=== PATIENT | female | born 2000 | race Caucasian/White ===

== ENCOUNTER 2021-12-10 09:55 | Emergency (ER) | payer OTHER ==
[2021-12-10 11:08] LABS: RED BLOOD COUNT 4.66 M/UL (4.00-5.10); WHITE BLOOD COUNT 5.9 K/UL (4.5-11.0)
[2021-12-10 11:32] LABS: BUN/CREATININE RATIO 18 (0-10)
== END 2021-12-10 12:55 | disposition home or self-care (01) ==
LOC: ER1 09:55
PROVIDERS: Student in an Organized Health Care Education/Training Program
DX: R10.32 Left lower quadrant pain (principal)
CPT/HCPCS: 80053; 81001; 83690; 84703; 85025; 87086; 99284; Q9967

== ENCOUNTER → 2022-01-25 | Outpatient (CLI) | payer OTHER ==
[~2022-01-25] MED LIST: COLACE 100MG C100 MG PO; HYDROCODON-ACE1 EAC4 PO; IBUPROFEN600 MG PO; NIKKI 3 MG-0.01 EACH PO
[2022-01-25 13:45] LABS: RED BLOOD COUNT 4.66 M/UL (4.00-5.10)
== END ==
LOC: OPSV2 12:30
PROVIDERS: Obstetrics & Gynecology
DX: Z01.812 Encounter for preprocedural laboratory examination (principal); R10.2 Pelvic and perineal pain
CPT/HCPCS: 81001; 85025

== ENCOUNTER → 2022-01-27 | Day surgery (SDC) | payer OTHER | END | disposition home or self-care (01) | LOC: OR 07:23 | DX: N80.3 Endometriosis of pelvic peritoneum (principal) | CPT/HCPCS: 84703; J1100; J1170; J1885; J2001; J2250; J2405; J2550; J2704; J2795; J3010 ==